=== PATIENT | male | born 1980 | race Caucasian/White ===

== ENCOUNTER 2017-12-20 18:06 | Emergency (ER) | payer OTHER ==
[2017-12-20] MEDS ORDERED: Lidocaine 2% with EPINEPHrine 1:100,000 20 ML MDV INJECT ONE (18:12)
--- NOTE | 2017-12-20 18:13 | EDM.PDOC ---
ED HPI GENERAL MEDICAL PROBLEM - General Chief Complaint: Laceration Stated Complaint: Cut to top of right hand Time Seen by Provider: 12/20/17 18:11 Source of Information: Reports: Patient, RN, RN Notes Reviewed History Limitations: Reports: No Limitations - History of Present Illness INITIAL COMMENTS - FREE TEXT/NARRATIVE: Patient presents to the ED at [facility] after he sustained a laceration tot he dorsum of the right hand. Patient states he was working with sheet metal when his hand slipped, causing the laceration on the metal. This is not a work related injury. Patient denies any numbness, tingling, or paresthesia of the right hand. No tendon involvement. CMS intact of right hand. Tetanus up to date 2016. Onset: Today Onset Date: 12/20/17 - Related Data Allergies Allergy/AdvReac Type Severity Reaction Status Date / Time No Known Allergies Allergy Verified 12/20/17 18:22 Home Meds: Home Meds . [No Known Home Meds] 10/19/13 [History] Past Medical History - Past Health History Medical/Surgical History: Denies Medical/Surgical History ED ROS GENERAL - Review of Systems Review Of Systems: See Below Constitutional: Denies: Fever, Chills Respiratory: Denies: Shortness of Breath, Cough Cardiovascular: Denies: Chest Pain, Palpitations Skin: Reports: Wound (cut to top of right hand) Neurological: Denies: Numbness, Paresthesia, Tingling ED EXAM, SKIN/RASH Exam: See Below Exam Limited By: No Limitations General Appearance: Alert, No Apparent Distress Respiratory/Chest: No Respiratory Distress, Lungs Clear, Normal Breath Sounds Cardiovascular: Normal Peripheral Pulses, Regular Rate, Rhythm Peripheral Pulses: 2+: Radial (L), Radial (R) Neurological: Alert, Oriented Skin: Warm, Dry, Normal Color, Wound/Incision (1cm horizontal laceration to dorsum of the right hand; low grade venous ooze; no tendon involvement; area will require surgical closure to ensure optimal wound healing) Location, Skin: Upper Extremity, Right ED SKIN PROCEDURES - Laceration/Wound Repair Right Hand Lac/Wound length In cm: 1 Appearance: Subcutaneous, Linear, Clean Distal NVT: Neuro & Vascular Intact, No Tendon Injury Anesthetic Type: Local Local Anesthesia - Lidocaine (Xylocaine): 2% with EPI Local Anesthetic Volume: 3cc Skin Prep: Providone-Iodine (Betadine) Exploration/Debridement/Repair: Wound Explored, In a Bloodless Field, Explored to Base, No Foreign Material Found Closed with: Sutures Suture Size: 4-0 # of Sutures: 3 Suture Type: Nylon, Interrupted, Simple Sterile Dressing Applied: Provider Tetanus Status Addressed: Yes Complications: No Course - Vital Signs Last Recorded V/S: Last Vital Signs Temp 36.5 C 12/20/17 18:08 Pulse 64 12/20/17 18:08 Resp 16 12/20/17 18:08 BP 126/87 12/20/17 18:08 Pulse Ox - Orders/Labs/Meds Meds: Medications Discontinued Medications Generic Name Dose Route Start Last Admin Trade Name Doug PRN Reason Stop Dose Admin Lidocaine/Epinephrine 20 ml 12/20/17 18:12 12/20/17 18:18 Xylocaine 2% With Epinephrine 1:100,000 INJECT 12/20/17 18:13 20 ml ONETIME ONE Administration Departure - Departure Time of Disposition: 18:31 Disposition: Home, Self-Care 01 Condition: Good Clinical Impression: Hand laceration Qualifiers: Encounter type: initial encounter Foreign body presence: without foreign body Laterality: right Qualified Code(s): S61.411A - Laceration without foreign body of right hand, initial encounter - Discharge Information Instructions: Wound Care, Adult, Sutured Wound Care Referrals: Vinita Rowell NP [Ordering Only Provider] - 12/30/17 (wound recheck and possible suture removal) Forms: ED Department Discharge Additional Instructions: 1. Stay well hydrated and rest 2. Sutures to stay in for 10 days 3. See your Primary in 10 days for a wound recheck and possible suture removal 4. Leave bandage on overnight, then remove 5. May shower/bathe as usual 6. Keep area clean and dry 7. Call us with any questions or concerns - Problem List Review Problem List Initiated/Reviewed/Updated: Yes
== END 2017-12-20 18:38 | disposition home or self-care (01) ==
LOC: VM.ED 18:06
DX: S61.411A Laceration without foreign body of right hand, initial encounter (principal); W26.8XXA Contact with other sharp object(s), not elsewhere classified, initial encounter
CPT/HCPCS: 12001; 99283

== ENCOUNTER 2018-10-26 16:58 | Emergency (ER) | payer OTHER ==
[2018-10-26] MEDS ORDERED: Lidocaine 1% 30 ML SDV INJECT ONE (17:21)
--- NOTE | 2018-10-26 18:09 | EDM.PDOC ---
ED HPI GENERAL MEDICAL PROBLEM - General Chief Complaint: Laceration Stated Complaint: INJURY TO R ARM Time Seen by Provider: 10/26/18 17:00 Source of Information: Reports: Patient History Limitations: Reports: No Limitations - History of Present Illness INITIAL COMMENTS - FREE TEXT/NARRATIVE: Pt. presents to ER with complaints of laceration to posterior aspect of R elbow. Pt. states that he was cleaning gutters and slipped down a wet ladder rung and injuring his elbow. He states that the injury is isolated to his R elbow. States that the ROM of the joint is unchanged. Pt. denies any numbness/ tingling in the distal portion of the extremity. States that his tetanus is up to date. Onset: Today Location: Reports: Upper Extremity, Right Quality: Reports: Sharp Severity: Mild Improves with: Reports: Rest - Related Data Allergies Allergy/AdvReac Type Severity Reaction Status Date / Time No Known Allergies Allergy Verified 12/20/17 18:22 Home Meds: Home Meds . [No Known Home Meds] 10/19/13 [History] Past Medical History - Past Health History Medical/Surgical History: Denies Medical/Surgical History - Past Surgical History HEENT Surgical History: Reports: Adenoidectomy, Oral Surgery, Tonsillectomy Other HEENT Surgeries/Procedures: wisdom teeth Male Surgical History: Reports: Other (See Below) Other Male Surgeries/Procedures: cystoscopy and lump removed ED ROS GENERAL - Review of Systems Review Of Systems: See Below Constitutional: Reports: No Symptoms HEENT: Reports: No Symptoms Respiratory: Reports: No Symptoms Cardiovascular: Reports: No Symptoms Endocrine: Reports: No Symptoms GI/Abdominal: Reports: No Symptoms : Reports: No Symptoms Musculoskeletal: Reports: Other (see HPI) Skin: Reports: No Symptoms Neurological: Reports: No Symptoms Psychiatric: Reports: No Symptoms Hematologic/Lymphatic: Reports: No Symptoms Immunologic: Reports: No Symptoms ED EXAM, SKIN/RASH Exam: See Below Exam Limited By: No Limitations General Appearance: Alert, WD/WN, No Apparent Distress Extremities: Other (approx. 3 cm laceration to dorsum of R elbow.) Neurological: Alert, Oriented, CN II-XII Intact, Normal Cognition, Normal Gait, Normal Reflexes, No Motor/Sensory Deficits ED SKIN PROCEDURES - Laceration/Wound Repair Right Dorsal Elbow Lac/Wound length In cm: 3 Appearance: Subcutaneous Distal NVT: Neuro & Vascular Intact, No Tendon Injury Anesthetic Type: Local Local Anesthesia - Lidocaine (Xylocaine): 1% Plain Local Anesthetic Volume: 5cc Skin Prep: Chlorhexidine (Hibiciens), Saline Saline Irrigation (cc's): 500 Exploration/Debridement/Repair: Wound Explored, Explored to Base, Minimal Debridement, Foreign Material Removed Closed with: Sutures Suture Size: 3-0 # of Sutures: 4 Suture Type: Nylon Course - Orders/Labs/Meds Meds: Medications Discontinued Medications Generic Name Dose Route Start Last Admin Trade Name Doug PRN Reason Stop Dose Admin Lidocaine HCl 30 ml 10/26/18 17:21 10/26/18 17:30 Xylocaine-Mpf 1% INJECT 10/26/18 17:22 30 ml ONETIME ONE Administration Departure - Departure Time of Disposition: 17:50 Disposition: Home, Self-Care 01 Clinical Impression: Laceration - Discharge Information Instructions: Laceration Care, Adult Forms: ED Department Discharge Additional Instructions: Keep open to air as much as possible. Keep covered for the next 24 hours of if it is oozing blood. Sutures out in 12 days. This can be done in the clinic. Return to ER or follow-up sooner if there is redness, swelling, or discharge from the laceration. - Assessment/Plan Plan: Keep open to air as much as possible. Keep covered for the next 24 hours of if it is oozing blood. Sutures out in 12 days. This can be done in the clinic. Return to ER or follow-up sooner if there is redness, swelling, or discharge from the laceration.
== END 2018-10-26 18:00 | disposition home or self-care (01) ==
LOC: VM.ED 16:58
DX: S51.021A Laceration with foreign body of right elbow, initial encounter (principal); W11.XXXA Fall on and from ladder, initial encounter
CPT/HCPCS: 12002; 99283; J2001

== ENCOUNTER 2021-08-12 21:29 | Emergency (ER) | payer OTHER ==
[2021-08-12] MEDS ORDERED: Ondansetron 4 MG/2 ML SDV IVPUSH ONE (21:34)
[2021-08-12] MEDS ORDERED: fentaNYL 50 MCG/ML SDV IVPUSH ONE (21:34)
[2021-08-12] MEDS ORDERED: Sodium Chloride 0.9% 1,000 ML IV SCH (21:45)
[2021-08-12 22:11] LABS: CHLORIDE,CL 99 mmol/L (98-107); SODIUM,NA 137 mmol/L (136-145)
[2021-08-12 22:12] LABS: ANION GAP 16.4 mmol/L (5-15)
[2021-08-13] MEDS ORDERED: Iopamidol 612 MG/ML 100 ML Bottle IVPUSH ONE (00:47)
[2021-08-13] MEDS ORDERED: cefTRIAXone 1 GM Vial IVPUSH ONE (03:16)
[2021-08-13] MEDS ORDERED: Take Home: Acetaminophen/HYDROcodone 325-5 MG, 5 Tab Pack PO ONE (03:16)
== END 2021-08-13 03:43 | disposition home or self-care (01) ==
LOC: VM.ED 21:29
DX: J18.9 Pneumonia, unspecified organism (principal); R10.11 Right upper quadrant pain; Z87.891 Personal history of nicotine dependence; Z20.822 Contact with and (suspected) exposure to COVID-19
CPT/HCPCS: 36415; 74177; 80053; 81003; 82150; 83605; 83690; 84145; 85025; 86140; 87040; 87635; 96374; 96375; 99284; A9270; J0696; J2405; J3010; J7030; Q9967; U0002

== ENCOUNTER 2022-12-26 07:45 | Emergency (ER) | payer OTHER | END 2022-12-26 08:24 | disposition home or self-care (01) | LOC: SUPCPDRO 07:45 → VM.ED 07:45 | DX: B02.9 Zoster without complications (principal); Z87.891 Personal history of nicotine dependence | CPT/HCPCS: 99282; 99283 ==

== ENCOUNTER 2023-10-14 18:45 | Emergency (ER) | payer OTHER ==
[2023-10-14] MEDS: Diphtheria,Pertussis(Acell),Tetanus Vaccine 0.5 ML Syringe IM ONE (19:13)
[2023-10-14] MEDS: Take Home: Cephalexin 500 MG Cap, 6 Cap Pack PO ONE (19:17)
== END 2023-10-14 19:35 | disposition home or self-care (01) ==
LOC: VM.ED 18:45
DX: S61.452A Open bite of left hand, initial encounter (principal); Z79.899 Other long term (current) drug therapy; Z23 Encounter for immunization; W55.01XA Bitten by cat, initial encounter
CPT/HCPCS: 90471; 90715; 99283; A9270